=== PATIENT | male | born 1990 | race Caucasian/White ===

== ENCOUNTER 2017-11-17 08:25 | Emergency (ER) | payer SELFPAY ==
[~2017-11-17] VITALS: Ht 180.3 cm; Wt 73.4 kg
[~2017-11-17 08:25] MED LIST: 12 HOUR DECONG120 M1 PO; NOHOMEMEDS; ZYRTEC10 M2 PO
[2017-11-17] MEDS ORDERED: FLEXERIL10 MG PO (09:20)
[2017-11-17] MEDS ORDERED: NAPROSYN500 MG PO (09:20)
[2017-11-17 09:59] VITALS: BP 111/78
== END 2017-11-17 10:01 | disposition home or self-care (01) ==
LOC: EME 08:25
PROC: 3E0234Z Introduction of Serum, Toxoid and Vaccine into Muscle, Percutaneous Approach (ICD-10-PCS; principal; 2017-11-17)
DX: S30.0XXA Contusion of lower back and pelvis, initial encounter (principal); S30.810A Abrasion of lower back and pelvis, initial encounter; W10.9XXA Fall (on) (from) unspecified stairs and steps, initial encounter; F17.200 Nicotine dependence, unspecified, uncomplicated; Z88.2 Allergy status to sulfonamides; Z23 Encounter for immunization
CPT/HCPCS: 99281; 99283